=== PATIENT | male | born 1950 | race African-American/Black ===

== ENCOUNTER 2018-03-02 05:41 | Day surgery (SDC) | payer MEDICARE, OTHER ==
--- NOTE | 2018-02-27 17:45 | Pre-op HX & Phy Repo 2 SIG ---
DATE OF ADMISSION: 02/27/2018 PREOPERATIVE DIAGNOSIS: Nonclearing vitreous hemorrhage, left eye. BRIEF NOTE: This is a first [facility] [place] retinal service admission for this 67-year-old gentleman, who complained of blurred vision in the left eye for almost 2 months. He has a history of diabetes and was found to have a significant vitreous hemorrhage in the left eye. His past ocular history is remarkable for prior intravitreal injections in both eyes in November of this year. He claims to have not had laser. PAST MEDICAL HISTORY: Remarkable for diabetes for 18 years as well as hypertension. He previously was treated for a colon cancer, successfully. He also has a history of kidney disease. CURRENT MEDICATIONS: Include amlodipine, amoxicillin, Lasix, labetalol, and Novolin insulin. ALLERGIES: He has no allergies. SOCIAL HISTORY: He is a smoker. OCULAR EXAMINATION: Best vision at the time of admission was 20/30-2 in the right eye and counting fingers at 5 feet in the left. The pressures were 10 and 9. The anterior segment showed early -to-moderate cataracts in either eye, but otherwise clear. Fundus examination of the right eye showed a possible disc neovascularization. There was diabetic macular edema and a mild vitreous hemorrhage down below. The left fundus could not be seen secondary to the dense vitreous hemorrhage. An ultrasound done on the left eye showed extensive mobile vitreous hemorrhage without evidence of traction or retinal elevation. General physical examination was done by the patient's laminating machine tender, Dr. Patricio. ASSESSMENT: Nonclearing vitreous hemorrhage, left eye. PLAN: The plan is to perform a pars plana vitrectomy with membrane dissection, endolaser, and an Avastin injection as needed in the left eye. The risks and benefits of surgery have been gone over with the patient with potential for infection, hemorrhage, cataract formation, glaucoma, remote possibility of loss of the eye. The risk of anesthesia was discussed. The patient understands and consents to the surgery, which will be performed on Friday morning. Froylan Ladd M.D. DR: AMADOU JOB#: [id number] CC:
[2018-03-02] VITALS (8 sets, daily range): BP systolic 142–172; BP diastolic 71–84
[~2018-03-02] VITALS: Ht 171.4 cm; Wt 79.4 kg
[2018-03-02] MEDS ORDERED: Avastin 10mg Inj IVITRE SCH (06:00)
[2018-03-02] MEDS ORDERED: Vigamox Opth Soln 3ml RIGHT EYE SCH (06:00)
[2018-03-02] MEDS ORDERED: Phenylephrine 2.5% Op 2ml Soln RIGHT EYE SCH (06:00)
[2018-03-02] MEDS ORDERED: Flurbiprofen 0.03% Opth Sol 2.5ml RIGHT EYE SCH (06:00)
[2018-03-02] MEDS ORDERED: Pred Forte 1% Opth Susp 1ml RIGHT EYE SCH (06:00)
[2018-03-02] MEDS ORDERED: Pred Forte 1% Opth Susp 1ml LEFT EYE SCH (06:30)
[2018-03-02] MEDS: Vigamox Opth Soln 3ml LEFT EYE SCH ×3 (06:33→06:57)
[2018-03-02] MEDS: Phenylephrine 2.5% Op 2ml Soln LEFT EYE SCH ×3 (06:33→06:57)
[2018-03-02] MEDS: Cyclopentolate 1% Opth Sol 2ml LEFT EYE SCH ×3 (06:33→06:57)
[2018-03-02] MEDS: Flurbiprofen 0.03% Opth Sol 2.5ml LEFT EYE SCH ×3 (06:34→06:57)
[2018-03-02] MEDS ORDERED: FUROSEMIDE40 MG ORAL (06:56)
[2018-03-02] MEDS ORDERED: NORMODYNE200 MG ORAL (06:56)
[2018-03-02] MEDS ORDERED: Lidocaine 2% MPF 5ml Vial INJ ONE (07:12)
[2018-03-02] MEDS ORDERED: EPINEPHrine 1mg/1ml Amp ONE (07:12)
[2018-03-02] MEDS ORDERED: Kenalog-10 5ml Inj ONE (07:13)
[2018-03-02] MEDS ORDERED: Kenalog-40 1ml Vial ONE (07:13)
[2018-03-02] MEDS ORDERED: Maxitrol Opth Oint 3.5gm ONE (07:13)
[2018-03-02] MEDS ORDERED: Povidone-Iodine 5% opth solution ONE (07:13)
[2018-03-02] MEDS ORDERED: BSS 15ml BTL ONE (07:13)
[2018-03-02] MEDS ORDERED: BSS 500ml btl ONE (07:13)
[2018-03-02] MEDS ORDERED: Bupivacaine 0.75% 30ml vial INJ ONE (07:14)
[2018-03-02] MEDS ORDERED: Sodium Hyaluronate 10 mg/ml 0.85ml ONE (07:14)
[2018-03-02] MEDS ORDERED: Tetracaine 0.5% Opth 4ml Soln ONE (07:14)
--- NOTE | 2018-03-02 07:21 | Pre-Procedure Note/Attestation ---
Pre-Procedure Note/Attestation Complete Prior to Procedure Planned Procedure: left Procedure Narrative: PPV, membrane peel, endolaser, gas-fluid exchange, Avastin injection Left eye Indications for Procedure Pre-Operative Diagnosis: Nonclearing vitreous hemorrhage Lefft eye Attestation I attest that I discussed the nature of the procedure; its benefits; risks and complications; and alternatives (and the risks and benefits of such alternatives ), prior to the procedure, with the patient (or the patient's legal commissary representative). I attest that, if there was a reasonable possibility of needing a blood transfusion, the patient (or the patient's legal commissary representative) was given the [place] Department [facility] Services standardized written summary, pursuant to the [place] Blood Safety Act ([place] Health and Safety Code # 1645, as amended). I attest that I re-evaluated the patient just prior to the surgery and that there has been no change in the patient's H&P, except as documented below: PARTH PARSONS Mar 02, 2018 07:21
[2018-03-02] MEDS ORDERED: Propofol 200mg/20ml IV ONE (07:25)
[2018-03-02] MEDS ORDERED: Midazolam 2mg/2ml Inj ONE (07:26)
[2018-03-02] MEDS ORDERED: D5 1/2NS 1000ml IV ONE (07:30)
[2018-03-02] MEDS ORDERED: Sterile Water Irrig 1000ml IRRIG ONE (07:30)
[2018-03-02] MEDS ORDERED: NS Irrig 1000ml ONE (07:30)
[2018-03-02] MEDS ORDERED: LR 1000ml 1,000 ML IVLG SCH (07:56)
[2018-03-02] MEDS ORDERED: fentaNYL 100 mcg/2 mL IV PRN (08:00)
--- NOTE | 2018-03-02 08:03 | Anethesia Preoperative Eval ---
Anesthesia Pre-op PMH/ROS General Date of Evaluation: Mar 02, 2018 Time of Evaluation: 07:20 Anesthesiologist: Renetta ASA Score: ASA 3 Mallampati Score Class I : Soft palate, uvula, fauces, pillars visible Class II: Soft palate, uvula, fauces visible Class III: Soft palate, base of uvula visible Class IV: Only hard plate visible Mallampati Classification: Class II Surgeon: Wilberto Diagnosis: Vitreous hemmorrhage left eye Surgical Procedure: Vitrectomy, membrane peel Family History: no anesthesia problems Allergies: Coded Allergies: No Known Allergies (Unverified , 03/02/18) Medications: see eMAR Past Medical History Cardiovascular: Reports: HTN; Denies: CAD, [place], valve dz, arrhythmia, other Pulmonary: Denies: asthma, COPD, TATY, other Gastrointestinal/Genitourinary: Reports: ESRD; Denies: GERD, CRI, other Neurologic/Psychiatric: Denies: dementia, CVA, depression/anxiety, TIA, other Endocrine: Reports: DM; Denies: hypothyroidism, steroids, other HEENT: Denies: cataract (L), cataract (R), glaucoma, [place] (L), [place] (R), other Hematology/Immune: Denies: anemia, DVT, bleeding disorder, other Musculoskeletal/Integumentary: Denies: OA, RA, DJD, DDD, edema, other PMH Narrative: HTN, DM, colon CA (s/p colon resection), ESRD (on HD) PSxH Narrative: Colon resection, A-V fistula Anesthesia Pre-op Phys. Exam Physician Exam Last Vital Signs Date Time Temp Pulse Resp B/P (MAP) Pulse Ox O2 Delivery O2 Flow Rate FiO2 03/02/18 06:30 Room Air 03/02/18 06:30 97.0 74 18 164/79 (107) 99 97.0 Constitutional: NAD Neurologic: CN 2-12 intact Cardiovascular: RRR, no M/R/G Respiratory: CTA Gastrointestinal: S/NT/ND Airway Exam Mallampati Score: Class II MO: full ROM: full Dentures: lower Anesthesia Pre-op A/P Labs Chemistry Test 03/02/18 06:29 Potassium Level 4.7 MMOL/L (3.5-5.1) Accucheck 79 Studies Pre-op Studies: EKG - SR, RBBB Risk Assessment & Plan Assessment: Class 3 patient for left eye vitrectomy Plan: MAC Status Change Before Surgery: No Pre-Antibiotics Drug: None El Jackson MD Mar 02, 2018 08:03
--- NOTE | 2018-03-02 08:05 | Immediate Post-Op Evaluation ---
Immediate Post-Op Evalulation Immediate Post-Op Evalulation Procedure: Vitrectomy, membrane peel left eye Date of Evaluation: Mar 02, 2018 Time of Evaluation: 08:50 IV Fluids: 300 Blood Pressure Systolic: 167 Blood Pressure Diastolic: 72 Pulse Rate: 75 Respiratory Rate: 20 O2 Sat by Pulse Oximetry: 100 Temperature (Fahrenheit): 97.6 Pain Score (1-10): 0 Nausea: No Vomiting: No Complications No complication Patient Status: awake, patent, none Hydration Status: adequate Drug: None El Jackson MD Mar 02, 2018 08:05
[2018-03-02] MEDS ORDERED: Dexamethasone 4mg/ml vial ONE (08:08)
[2018-03-02] MEDS ORDERED: Pred Forte 1% Opth Susp 1ml ONE (08:16)
--- NOTE | 2018-03-02 08:44 | Brief Operative Note ---
Immediate Post Operative Note Operative Note Chief Complaint: Clouds in vision Left eye Pre-op Diagnosis: Nonclearing vitreous hemorrhage Lefft eye Procedure: PPV, endolaser 1331 spots, Avastin injection 1.25mg Left eye Post-op Diagnosis: same as pre-op Surgeon: minda Anesthesiologist: teetee Anesthesia: MAC Specimen: none Complications: none Condition: stable Fluids: Per anesthesia Estimated Blood Loss: none Drains: none Implant(s) used?: No PARTH PARSONS Mar 02, 2018 08:44
--- NOTE | 2018-03-02 08:47 | 48 Hour Post Anesthesia Eval ---
Post Anesthesia Evaluation Procedure: Vitrectomy, membrane peel left eye Date of Evaluation: Mar 02, 2018 Time of Evaluation: 09:15 Blood Pressure Systolic: 142 0: 75 Pulse Rate: 70 Respiratory Rate: 18 O2 Sat by Pulse Oximetry: 100 Airway: patent Nausea: No Vomiting: No Pain Intensity: 0 Hydration Status: adequate Cardiopulmonary Status: Stable Mental Status/LOC: patient returned to baseline Follow-up Care/Observations: As per surgery Post-Anesthesia Complications: No anesthetic complication Follow-up care needed: N/A El Jackson MD Mar 02, 2018 08:47
--- NOTE | 2018-03-02 12:45 | Operative Note - Dictated ---
DATE OF OPERATION: 03/02/2018 PREOPERATIVE DIAGNOSIS: Vitreous hemorrhage, nonclearing, left eye. POSTOPERATIVE DIAGNOSIS: Vitreous hemorrhage, nonclearing, left eye. PROCEDURES PERFORMED: 1. Pars plana vitrectomy. 2. Endolaser. 3. Avastin injection, left eye. SURGEON: Froylan Ladd M.D. HIGH SCHOOL HISTORY TEACHER: None. ANESTHESIA: Local sedation. ANESTHESIOLOGIST: Dr. Jackson. JUSTIFICATION FOR SURGERY: This 67-year-old gentleman with longstanding diabetes, developed a nonclearing hemorrhage in the left eye. BRIEF NOTE: The patient was brought to the operating room, placed on OR table in supine position. After a time-out was performed and agreed upon by the staff, an initial monitoring secured by Dr. Jackson. Retrobulbar and Van Lint blocks were given in the standard way. When the blocks taken effect, he was prepped and draped in the normal manner. A lid speculum was inserted into the left eye. Using a 23-gauge trocar system, cannulas were placed in all except infranasal quadrant. Infusion secured inferotemporally. Vitrectomy was begun posterior to the lens taking care to avoid contact. A central core vitrectomy was done followed by peripheral vitrectomy leaving a small vitreous skirt. The posterior hyaloid elevated previously and this was removed. Blood on the surface of the retina was gently suctioned clear. The endolaser was then brought to the eye and a power of 0.3 rajan and duration of 0.2 seconds, a total of 1331 lesions were applied in a broad band extending from the equator the pars plana. No problems were encountered. Scleral depression was done. No peripheral breaks, tears, or detachments were seen. The two superior cannulas were removed and after the sclerotomies were cleaned with the vitreous cutter, each was closed with a single 8-0 Vicryl suture. The infusion was disconnected and through the infusion cannula, 1.25 mg of Avastin was injected. The eye was reinflated and this cannula was removed as well. After cleaning the sclerotomy, this sclerotomy site was closed with 8-0 Vicryl suture as well. Subconjunctival Decadron and gentamicin were then injected inferiorly and Maxitrol ointment, prednisolone drops, and moxifloxacin drops were instilled. The eye was patched and shielded and the patient taken to recovery in excellent condition. There were no complications. Froylan Ladd M.D. DR: OBED JOB#: [id number] CC: Froylan Ladd M.D.; Fax#: [phone]
[2018-03-02] MEDS ORDERED: Norco 5mg/325mg tab ORAL PRN (16:01)
== END 2018-03-02 10:20 | disposition home or self-care (01) ==
LOC: SUR 05:41
DX: H43.12 Vitreous hemorrhage, left eye (principal); H35.81 Retinal edema; E11.9 Type 2 diabetes mellitus without complications; Z79.4 Long term (current) use of insulin; E11.22 Type 2 diabetes mellitus with diabetic chronic kidney disease; I12.0 Hypertensive chronic kidney disease with stage 5 chronic kidney disease or end stage renal disease; N18.6 End stage renal disease; Z99.2 Dependence on renal dialysis; F17.200 Nicotine dependence, unspecified, uncomplicated; Z85.038 Personal history of other malignant neoplasm of large intestine
CPT/HCPCS: 36415; 67039; 82962; 84132; J0171; J1100; J2250; J2704; J3470; J3490; 94003; 94150

== ENCOUNTER 2018-06-17 06:57 | Day surgery (SDC) | payer MEDICARE, OTHER ==
--- NOTE | 2018-06-16 15:30 | Pre-op HX & Phy Repo 2 SIG ---
DATE OF ADMISSION: 06/17/2018 ANTICIPATED DATE OF SURGERY: June 17, 2018. PREOPERATIVE DIAGNOSIS: Nonclearing vitreous hemorrhage, left eye. BRIEF NOTE: This is the second [place] admission for the patient who is a very pleasant 67-year-old gentleman with history of severe proliferative diabetic retinopathy. The patient underwent vitrectomy in the left eye with endolaser in February and did well until he developed a recurrent severe nonclearing hemorrhage on the left. He is admitted for repeat vitrectomy and washout. PAST MEDICAL HISTORY: Remarkable for diabetes for 18 years as well as prior colon cancer and hypertension. He also has kidney disease. MEDICATIONS: He is maintained on amlodipine, furosemide, Novolin N U-100 insulin. ALLERGIES: He has no known allergies. PHYSICAL EXAMINATION: Best vision at the time of admission was 20/200 in the right eye and counting fingers at 2 feet in the left with pressures of 15 and 16. The anterior segment showed moderate nuclear sclerosis. There were adhesions between iris and lens on the left. Funduscopic examination of the right eye showed mild vitreous hemorrhage down below. There was active peripheral retinopathy. The left eye showed moderately dense vitreous hemorrhage. Ultrasonography done on the left eye showed the hemorrhage and retinal detachment. ASSESSMENT: Nonclearing hemorrhage, left eye. PLAN: The plan is to perform pars plana vitrectomy with extensive peripheral endolaser washout and Avastin injection. The risks and benefits of surgery were gone over with the patient with potential for infection, hemorrhage, worsening of the cataract, retinal detachment, remote possibility of loss of the eye. The risk of anesthesia was discussed. The patient understands and consents to the surgery which will be performed on tomorrow morning. Froylan Ladd M.D. DR: Kristie JOB#: [id number] CC:
[~2018-06-17] VITALS: Ht 171.4 cm; Wt 80.7 kg
[2018-06-17] VITALS (8 sets, daily range): BP systolic 163–180; BP diastolic 85–94
[~2018-06-17 06:57] MED LIST: Atropine Sulfate 0.4mg/ml inj ONE; Avastin 10mg Inj IVITRE ONE; BSS 15ml BTL ONE; BSS 500ml btl ONE; Bupivacaine 0.75% 30ml vial INJ ONE; Cyclopentolate 1% Opth Sol 2ml ONE; Dexamethasone 4mg/ml vial ONE; EPINEPHrine 1mg/1ml Amp ONE; FUROSEMIDE40 MG ORAL; Flurbiprofen 0.03% Opth Sol 2.5ml ONE; Kenalog-10 5ml Inj ONE; Kenalog-40 1ml Vial ONE; Lidocaine 2% MPF 5ml Vial INJ ONE; Maxitrol Opth Oint 3.5gm ONE; NORMODYNE200 MG ORAL; Phenylephrine 2.5% Op 2ml Soln ONE; Povidone-Iodine 5% opth solution ONE; Pred Forte 1% Opth Susp 1ml ONE; Sodium Hyaluronate 14 mg/ml 0.85ml ONE; Tetracaine 0.5% Opth 4ml Soln ONE; Vigamox Opth Soln 3ml ONE
[2018-06-17] MEDS ORDERED: Lidocaine 2% MPF 5ml Vial INJ ONE (06:59)
[2018-06-17] MEDS ORDERED: Propofol 200mg/20ml IV ONE (07:28)
[2018-06-17] MEDS ORDERED: fentaNYL 100 mcg/2 mL IV ONE (07:28)
[2018-06-17] MEDS ORDERED: Midazolam 2mg/2ml Inj ONE (07:28)
[2018-06-17] MEDS ORDERED: Pred Forte 1% Opth Susp 1ml LEFT EYE ONE (07:30)
--- NOTE | 2018-06-17 07:33 | Pre-Procedure Note/Attestation ---
Pre-Procedure Note/Attestation Complete Prior to Procedure Planned Procedure: left Procedure Narrative: PPV, membrane peel, endolaser, Avastin injection Left eye Indications for Procedure Pre-Operative Diagnosis: Non-clearing, recurrent vitreous hemorrhage Left eye Attestation I attest that I discussed the nature of the procedure; its benefits; risks and complications; and alternatives (and the risks and benefits of such alternatives ), prior to the procedure, with the patient (or the patient's legal customer success representative). I attest that, if there was a reasonable possibility of needing a blood transfusion, the patient (or the patient's legal customer success representative) was given the [facility] standardized written summary, pursuant to the [place] Blood Safety Act ([place] Health and Safety Code # 1645, as amended). I attest that I re-evaluated the patient just prior to the surgery and that there has been no change in the patient's H&P, except as documented below: Froylan Ladd MD Jun 17, 2018 07:33
[2018-06-17] MEDS: Vigamox Opth Soln 3ml LEFT EYE SCH ×3 (07:34→07:49)
--- NOTE | 2018-06-17 07:34 | Anethesia Preoperative Eval ---
Anesthesia Pre-op PMH/ROS General Date of Evaluation: Jun 17, 2018 Time of Evaluation: 07:50 Anesthesiologist: Mary Walker CRNA ASA Score: ASA 3 Mallampati Score Class I : Soft palate, uvula, fauces, pillars visible Class II: Soft palate, uvula, fauces visible Class III: Soft palate, base of uvula visible Class IV: Only hard plate visible Mallampati Classification: Class II Surgeon: Wilberto Diagnosis: Vitreous hemorrhage LEFT eye Surgical Procedure: Pars plana vitrectomy, wash out, endolaser LEFT eye Anesthesia History: none Social History: current smoker Family History: no anesthesia problems Allergies: Coded Allergies: No Known Allergies (Unverified , 03/02/18) Medications: see eMAR Patient NPO?: Yes NPO Date: Jun 17, 2018 NPO Time: 00:00 Past Medical History Cardiovascular: Reports: HTN; Denies: CAD, [place], valve dz, arrhythmia, other Pulmonary: Denies: asthma, COPD, TATY, other Gastrointestinal/Genitourinary: Reports: ESRD - dialysis qMWF,last 06/16 K+ WNL; Denies: GERD, CRI, other Neurologic/Psychiatric: Denies: dementia, CVA, depression/anxiety, TIA, other Endocrine: Reports: DM; Denies: hypothyroidism, steroids, other HEENT: Reports: cataract (L), cataract (R); Denies: glaucoma, [place] (L), [place] (R), other Hematology/Immune: Denies: anemia, DVT, bleeding disorder, other Musculoskeletal/Integumentary: Reports: OA; Denies: RA, DJD, DDD, edema, other PMH Narrative: as above PSxH Narrative: LEFT eye vitrectomy, wash out; AV fistula Anesthesia Pre-op Phys. Exam Physician Exam see chart Constitutional: NAD Neurologic: CN 2-12 intact Cardiovascular: RRR Respiratory: CTA Gastrointestinal: S/NT/ND Airway Exam Mallampati Score: Class II MO: full Neck: no limitations TMD: > 3 fb ROM: full Teeth: missing Dentures: upper, lower Anesthesia Pre-op A/P Labs Hematology Test 06/17/18 07:45 White Blood Count 5.9 K/UL (4.8-10.8) Red Blood Count 4.16 M/UL (4.70-6.10) L Hemoglobin 13.0 G/DL (14.2-18.0) L Hematocrit 38.3 % (42.0-52.0) L Mean Corpuscular Volume 92 FL (80-99) Mean Corpuscular Hemoglobin 31.4 PG (27.0-31.0) H Mean Corpuscular Hemoglobin Concent 34.1 G/DL (32.0-36.0) Red Cell Distribution Width 12.6 % (11.6-14.8) Platelet Count 288 K/UL (150-450) Mean Platelet Volume 6.7 FL (6.5-10.1) Neutrophils (%) (Auto) 69.9 % (45.0-75.0) Lymphocytes (%) (Auto) 19.6 % (20.0-45.0) L Monocytes (%) (Auto) 8.2 % (1.0-10.0) Eosinophils (%) (Auto) 0.6 % (0.0-3.0) Basophils (%) (Auto) 1.7 % (0.0-2.0) Chemistry Test 06/17/18 07:45 Sodium Level 137 MMOL/L (136-145) Potassium Level 4.1 MMOL/L (3.5-5.1) Chloride Level 101 MMOL/L (98-107) Carbon Dioxide Level 25 MMOL/L (21-32) Anion Gap 11 mmol/L (5-15) Blood Urea Nitrogen 45 mg/dL (7-18) H Creatinine 6.9 MG/DL (0.55-1.30) H Estimat Glomerular Filtration Rate 9.8 mL/min (>60) Glucose Level 68 MG/DL (74-106) L Calcium Level 8.9 MG/DL (8.5-10.1) Accucheck FBS 56 Studies Pre-op Studies: EKG - NSR incomplete RBBB, left anterior fascicular block, anteroseptal infarct Risk Assessment & Plan Assessment: ASA 3 ok to proceed Plan: MAC Status Change Before Surgery: No Pre-Antibiotics Given Within 1 Hr of Incision: Mary Recinos CRNA Jun 17, 2018 07:34
[2018-06-17] MEDS: Cyclopentolate 1% Opth Sol 2ml LEFT EYE SCH ×2 (07:35→07:42)
[2018-06-17] MEDS: Flurbiprofen 0.03% Opth Sol 2.5ml LEFT EYE SCH ×3 (07:35→07:50)
[2018-06-17] MEDS: Phenylephrine 2.5% Op 2ml Soln LEFT EYE SCH ×3 (07:35→07:49)
[2018-06-17] MEDS ORDERED: Norco 5mg/325mg tab ORAL PRN (07:45)
[2018-06-17 07:56] LABS: BASOPHILS % (AUTO) 1.7 % (0.0-2.0); EOSINOPHILS % (AUTO) 0.6 % (0.0-3.0); HEMATOCRIT 38.3 % (42.0-52.0); LYMPHOCYTES % (AUTO) 19.6 % (20.0-45.0); MEAN CORPUSCULAR VOLUME 92 FL (80-99); MONOCYTES % (AUTO) 8.2 % (1.0-10.0); NEUTROPHILS % (AUTO) 69.9 % (45.0-75.0); PLATELET COUNT 288 K/UL (150-450); RED BLOOD COUNT 4.16 M/UL (4.70-6.10); RED CELL DISTRIBUTION WIDTH 12.6 % (11.6-14.8); WHITE BLOOD COUNT 5.9 K/UL (4.8-10.8)
[2018-06-17] MEDS ORDERED: D5 1/2NS 1000ml IV ONE (08:00)
[2018-06-17] MEDS ORDERED: Sterile Water Irrig 1000ml IRRIG ONE (08:00)
[2018-06-17] MEDS ORDERED: NS Irrig 1000ml ONE (08:00)
[2018-06-17] MEDS ORDERED: LEVETIRACE500 MG/51 PO (08:07)
[2018-06-17] MEDS ORDERED: CARVEDILOL12.5 MG ORAL (08:08)
[2018-06-17 08:09] LABS: ANION GAP 11 mmol/L (5-15); BLOOD UREA NITROGEN 45 mg/dL (7-18); CALCIUM 8.9 MG/DL (8.5-10.1); CARBON DIOXIDE 25 MMOL/L (21-32); CHLORIDE 101 MMOL/L (98-107); CREATININE 6.9 MG/DL (0.55-1.30); POTASSIUM 4.1 MMOL/L (3.5-5.1); SODIUM 137 MMOL/L (136-145)
[2018-06-17] MEDS ORDERED: ISOSORBIDE MONO20 MG PO (08:09)
[2018-06-17] MEDS ORDERED: ATORVASTATIN CA20 MG ORAL (08:11)
[2018-06-17] MEDS ORDERED: HYDRALAZINE HCL10 MG ORAL (08:12)
[2018-06-17] MEDS ORDERED: VIGAMOX1 DROP BOTH EYES (08:12)
[2018-06-17] MEDS ORDERED: PREDFORTE BOTH EYES (08:20)
--- NOTE | 2018-06-17 09:20 | Brief Operative Note ---
Immediate Post Operative Note Operative Note Chief Complaint: Blurred vision with floaters Left eye Pre-op Diagnosis: Non-clearing, recurrent vitreous hemorrhage Left eye Procedure: PPV, Lysis of iris adhesion, Fragmentation of lens with sparing of anterior capsule, Endolaser 944 spots, Avastin 1.25mg Left eye Post-op Diagnosis: Vitreous hemorrhage with progressive intraoperative whitening of cataract left eye Post-op Diagnosis: same as pre-op plus - White cataract developed intraoperatively Left eye necessitating removal to complete case Surgeon: minda Wireline Operator: none Anesthesiologist: Weston Suresh Anesthesia: MAC Specimen: none Complications: none Condition: stable Fluids: per anesthesia Estimated Blood Loss: none Drains: none Implant(s) used?: No Froylan Ladd MD Jun 17, 2018 09:20
[2018-06-17] MEDS ORDERED: Healon Duet Dual Pack ONE (09:25)
--- NOTE | 2018-06-17 09:27 | Immediate Post-Op Evaluation ---
Immediate Post-Op Evalulation Immediate Post-Op Evalulation Procedure: LEFT pars plana vitrectomy, membrane peeling, wash out, endolaser Date of Evaluation: Jun 17, 2018 Time of Evaluation: 09:13 IV Fluids: D5/.45% NS 150 ml Blood Pressure Systolic: 176 Blood Pressure Diastolic: 94 Pulse Rate: 79 Respiratory Rate: 18 O2 Sat by Pulse Oximetry: 100 Temperature (Fahrenheit): 97.6 Pain Score (1-10): 0 Nausea: No Vomiting: No Complications None, FBS 59; awake, alert, no distress, pt given OJ,will recheck glucose prior to discharge Patient Status: awake, reacts, patent Hydration Status: adequate Given Within 1 Hr of Incision: Mary Recinos CRNA Jun 17, 2018 09:27
[2018-06-17] MEDS ORDERED: acetaZOLAMIDE 500mg Sequel ORAL ONE (09:30)
--- NOTE | 2018-06-17 10:35 | 48 Hour Post Anesthesia Eval ---
Post Anesthesia Evaluation Procedure: LEFT pars plana vitrectomy, membrane peeling, wash out, endolaser Date of Evaluation: Jun 17, 2018 Time of Evaluation: 10:00 Blood Pressure Systolic: 179 0: 89 Pulse Rate: 78 Respiratory Rate: 18 Temperature (Fahrenheit): 97.6 O2 Sat by Pulse Oximetry: 100 Airway: patent Nausea: No Vomiting: No Pain Intensity: 0 Hydration Status: adequate Mental Status/LOC: patient returned to baseline Follow-up Care/Observations: per optho Post-Anesthesia Complications: none Follow-up care needed: ready to discharge Mary Walker CRNA Jun 17, 2018 10:35
--- NOTE | 2018-06-17 15:30 | Operative Note - Dictated ---
DATE OF OPERATION: 06/17/2018 PREOPERATIVE DIAGNOSIS: Dense recurrent vitreous hemorrhage, left eye POSTOPERATIVE DIAGNOSIS: Dense vitreous hemorrhage left eye with progressive whitening of the lens and subsequent cataract formation intraoperatively, left eye. PROCEDURES PERFORMED: 1. Pars plana vitrectomy. 2. Lysis of iris adhesions. 3. Fragmentation and removal of lens with sparing of anterior capsule. 4. Endolaser. 5. Avastin injection, left eye. SURGEON: Froylan Ladd M.D. HAND FUR CLEANER: None. ANESTHESIA: Local with sedation. ANESTHESIOLOGIST: Denise BURROWS. JUSTIFICATION FOR SURGERY: This 67-year-old gentleman with a long history of diabetes, underwent a vitrectomy several months ago with a good visual result. He noted progressive clouding of vision with moving shadows and was found to have a dense vitreous hemorrhage. He was admitted for surgery. The patient was brought to the operating room and placed on operating room table in supine position. After a time-out was performed and agreed upon by the staff and initial monitoring secured by anesthesia, retrobulbar and Van Lint blocks were given to the left eye in the standard way. When the blocks had taken effect, he was prepped and draped in normal manner. The lid speculum was inserted into the left eye. Using a 23-gauge trocar system, cannulas were placed all except infranasal quadrant. The MVR blade was used to perform a paracentesis at the 11 o'clock position and using an iris retractors a small area of iris adhesion at the 4 o'clock position was gently lysed. The pupil was noted to round very nicely. Vitrectomy was then begun posterior to the lens taking care to avoid contact. It was noted that the lens had progressed with almost total whitening making total completion of the vitrectomy impossible. The optic nerve and macular were reasonably well seen after flushing of the blood in the vitreous but the remainder of the retina could not be clearly noted. Based on this, it was elected to remove the lens with sparing of the anterior capsule for later placement of a secondary implant. The superolateral temporal wound was enlarged to 20-gauge size and using the fragmatome the lens was fragmented and removed with sparing of the anterior capsule. A few small fragments that had migrated posteriorly were easily removed with the vitreous cutter. No macular or other retinal issues were seen except for possible light treatment in the periphery. Endolaser was then brought to the eye and a power of 0.45 rajan and duration of 0.2 seconds, a total of 944 lesions were applied to the far periphery and to areas outside of the arcades and overlying were treated. No problems were encountered. Scleral depression was done. No peripheral breaks, tears, or detachments were seen. The supratemporal sclerotomy was closed with three interrupted sutures of 8-0 Vicryl with the knots buried. Overlying conjunctiva was closed with a similar suture also with the knots facing posteriorly. The superior nasal cannula was removed and this was closed with a single 8-0 Vicryl suture. The infusion line was disconnected and Avastin 1.25 mg was injected. The eye was reinflated and this cannula was also removed with the sclerotomy being closed similarly. Subconjunctival Decadron and gentamicin were then injected inferiorly and topical prednisolone drops, moxifloxacin drops, atropine drops, and Maxitrol ointment were instilled. The eye was patched and shielded. The patient taken to recovery in excellent condition. There were no complications but it should be noted that an intraoperative visualization became unsafe and virtually impossible so was necessary to fragment and remove the lens to complete the procedure. Froylan Ladd M.D. DR: Carmen JOB#: [id number] CC: Froylan Ladd M.D.; Fax#: [phone]
--- NOTE | 2018-06-17 16:28 | Cardiology Report ---
APPROVED REPORT EKG Measurement Heart [id number] AL [id number] Normal sinus rhythm Incomplete right bundle branch block Left anterior fascicular block Inferior infarct, age undetermined Anteroseptal infarct, age undetermined Abnormal ECG
== END 2018-06-17 12:25 | disposition home or self-care (01) ==
LOC: SUR 06:57
DX: H43.12 Vitreous hemorrhage, left eye (principal); H26.8 Other specified cataract; E11.3592 Type 2 diabetes mellitus with proliferative diabetic retinopathy without macular edema, left eye; Z79.4 Long term (current) use of insulin; E11.22 Type 2 diabetes mellitus with diabetic chronic kidney disease; I12.0 Hypertensive chronic kidney disease with stage 5 chronic kidney disease or end stage renal disease; N18.6 End stage renal disease; Z99.2 Dependence on renal dialysis; I25.2 Old myocardial infarction; F17.200 Nicotine dependence, unspecified, uncomplicated; M19.90 Unspecified osteoarthritis, unspecified site; Z85.038 Personal history of other malignant neoplasm of large intestine; Z79.899 Other long term (current) drug therapy
CPT/HCPCS: 36415; 66850; 67039; 80048; 82962; 85025; 93005; J0171; J1100; J2704; J3010; J3470; J3490; 94003; 94150; J2250